=== PATIENT | female | born 1995 | race Caucasian/White ===

== ENCOUNTER → 2017-11-24 | Outpatient (CLI) | payer MEDICAID ==
--- NOTE | 2017-11-24 10:59 | Diagnostic Imaging Report ---
EXAM: biophysical profile. INDICATION: Gestational diabetes FINDINGS: There are no prior studies available for comparison. There is a single live fetus in cephalic presentation. heart motion was noted and a rate of 123 bpm was recorded. The biophysical profile score is 8 out of 8 and within normal limits. The placenta is anterior and there is no previa. The amniotic fluid volume index is 12.8 (normal 8 to 22 cm). IMPRESSION: 1. There is a single live fetus is cephalic presentation. 2. The biophysical profile score is within normal limits. Dictated by: Dictated on workstation # [id number]
== END ==
LOC: RAD 10:16
PROVIDERS: ATTEND Obstetrics & Gynecology
DX: O24.013 Pre-existing type 1 diabetes mellitus, in pregnancy, third trimester (principal)
CPT/HCPCS: 76819

== ENCOUNTER 2017-12-13 18:00 | Inpatient (IN) | payer MEDICAID ==
[2017-12-13] VITALS (11 sets, daily range): BP systolic 108–136; BP diastolic 53–87
[~2017-12-13] VITALS: Ht 157.5 cm; Wt 101.2 kg
--- OUTSIDE RECORDS SUMMARY | 2017-12-13 18:08 | XMS REPORT | Continuity of Care Document ---
Author Author [facility] Address Unknown Phone Unavailable Allergies There is no data. Medications There is no data. Problems Date Dx Coded Attending Type Code Diagnosis Diagnosed By 04/24/2009 ROSIO SAMANIEOG DO 250.01 DIABETES MELLITUS TYPE 1 04/24/2009 ROSIO SAMANIEGO DO 278.02 Overweight 04/24/2009 ROSIO SAMANIEGO DO V20.2 Preventive Medicine New Patient Evaluation Childhood 03-3104/24/2009 ORSIO SAMANIEGO DO 250.01 DIABETES MELLITUS TYPE 1 04/24/2009 ROSIO SAMANIEGO DO 278.02 Overweight 04/24/2009 ROSIO SAMANIEGO DO V20.2 Preventive Medicine New Patient Evaluation Childhood 03-3104/24/2009 250.01 DIABETES MELLITUS TYPE 1 04/24/2009 278.02 Overweight 04/24/2009 V20.2 Preventive Medicine New Patient Evaluation Childhood 03-3104/24/2009 250.01 DIABETES MELLITUS TYPE 1 04/24/2009 278.02 Overweight 04/24/2009 V20.2 Preventive Medicine New Patient Evaluation Childhood 03-3104/24/2009 ROSIO SAMANIEGO DO 250.01 DIABETES MELLITUS TYPE 1 04/24/2009 ROSIO SAMANIEGO DO 278.02 Overweight 04/24/2009 ROSIO SAMANIEGO DO V20.2 Preventive Medicine New Patient Evaluation Childhood 03-3104/24/2009 CATHERINE BABIN APRN R 250.01 DIABETES MELLITUS TYPE 1 04/24/2009 ALVAREZ BABIN APRNINA R 278.02 Overweight 04/24/2009 ALVAREZ BABIN APRNINA R V20.2 Preventive Medicine New Patient Evaluation Childhood 03-3104/24/2009 MIGUEL ANGEL HERNANDEZ APRN A 250.01 DIABETES MELLITUS TYPE 1 04/24/2009 MIGUEL ANGEL HERNANDEZ APRN A 278.02 Overweight 04/24/2009 MIGUEL ANGEL HERNANDEZ APRN A V20.2 Preventive Medicine New Patient Evaluation Childhood 03-3104/24/2009 AURELIO JONES APRN N 250.01 DIABETES MELLITUS TYPE 1 04/24/2009 JAXON JONES APRNCY N 278.02 Overweight 04/24/2009 AURELIO JONES APRN N V20.2 Preventive Medicine New Patient Evaluation Childhood 5-04/24/2009 AURELIO JONES APRN N 250.01 DIABETES MELLITUS TYPE 1 04/24/2009 JAXON JONES APRNCY N 278.02 Overweight 04/24/2009 JAXON JONES APRNCY N V20.2 Preventive Medicine New Patient Evaluation Childhood 5-04/24/2009 JAXON JONES APRNCY N 250.01 DIABETES MELLITUS TYPE 1 04/24/2009 JAXON JONES APRNCY N 278.02 Overweight 04/24/2009 JAXON JONES APRNCY N V20.2 Preventive Medicine New Patient Evaluation Childhood 5-04/24/2009 EATDACIA HUGGINSN, URBAN L 250.01 DIABETES MELLITUS TYPE 1 04/24/2009 EATDACIA HUGGINSN, URBAN L 278.02 Overweight 04/24/2009 EATON MACHINIST WOOD, URBAN L V20.2 Preventive Medicine New Patient Evaluation Childhood 5-04/24/2009 EATON MACHINIST WOOD, URBAN L 250.01 DIABETES MELLITUS TYPE 1 04/24/2009 EATON MACHINIST WOOD, URBAN L 278.02 Overweight 04/24/2009 EATON MACHINIST WOOD, URBAN L V20.2 Preventive Medicine New Patient Evaluation Childhood 5-11 06/29/2011 SAMANIEGO DOROSIO V04.89 Gardasil (hpv) Dx 06/29/2011 ROSIO SAMANIEGO DO V04.89 Gardasil (hpv) Dx 06/29/2011 V04.89 Gardasil (hpv ) Dx 06/29/2011 V04.89 Gardasil (hpv ) Dx 06/29/2011 ROSIO SAMANIEGO DO V04.89 Gardasil (hpv) Dx 06/29/2011 CATHERINE BABIN APRN V04.89 Gardasil (hpv) Dx 06/29/2011 MIGUEL ANGEL HERNANDEZ APRN V04.89 Gardasil (hpv) Dx 06/29/2011 KENYATTA SOARES APRAURELIO Larry N V04.89 Gardasil (hpv) Dx 06/29/2011 KENYATTA SOARES APRN, AURELIO N V04.89 Gardasil (hpv) Dx 06/29/2011 YOUTYRON SOARES APRN, AURELIO N V04.89 Gardasil (hpv) Dx 06/29/2011 EATON MACHINIST WOOD, URBAN L V04.89 Gardasil (hpv) Dx 06/29/2011 EATON MACHINIST WOOD, URBAN L V04.89 Gardasil (hpv) Dx 07/21/2011 ROSIO SAMANIEGO DO K 625.3 severe menstrual pain (dysmenorrhea) 07/21/2011 SAMANIEGO DO ROSIO K V25.01 Oral Contraceptives 07/21/2011 SAMANIEGO DO ROSIO K 625.3 severe menstrual pain (dysmenorrhea) 07/21/2011 SAMANIEGO DO ROSIO K V25.01 Oral Contraceptives 07/21/2011 625.3 severe menstrual pain (dysmenorrhea) 07/21/2011 V25.01 Oral Contraceptives 07/21/2011 625.3 severe menstrual pain (dysmenorrhea) 07/21/2011 V25.01 Oral Contraceptives 07/21/2011 SAMANIEGO ANDREW EDMONDSONA K 625.3 severe menstrual pain (dysmenorrhea) 07/21/2011 SAMANIEGO DO ROSIO K V25.01 Oral Contraceptives 07/21/2011 OLAF BHAKTA, CATHERINE R 625.3 severe menstrual pain (dysmenorrhea) 07/21/2011 OLAF BHAKTA CATHERINE R V25.01 Oral Contraceptives 07/21/2011 DAVID BHAKTA, MIGUEL ANGEL A 625.3 severe menstrual pain (dysmenorrhea) 07/21/2011 DAVID BHAKTA MIGUEL ANGEL A V25.01 Oral Contraceptives 07/21/2011 JAXON JONES APRNCY N 625.3 severe menstrual pain (dysmenorrhea) 07/21/2011 YOU CASHANT BHAKTA, AURELIO N V25.01 Oral Contraceptives 07/21/2011 JAXON JONES APRNCY N 625.3 severe menstrual pain (dysmenorrhea) 07/21/2011 KENYATTA SOARES MACHINIST WOOD, AURELIO N V25.01 Oral Contraceptives 07/21/2011 JAXON JONES APRNCY N 625.3 severe menstrual pain (dysmenorrhea) 07/21/2011 YOU CASHERO MACHINIST WOOD, AURELIO N V25.01 Oral Contraceptives 07/21/2011 COOPERON MACHINIST WOODJOSE ALFREDO LarrySON L 625.3 severe menstrual pain (dysmenorrhea) 07/21/2011 EATON MACHINIST WOOD URBAN L V25.01 Oral Contraceptives 07/21/2011 EATON MACHINIST WOOD, URBAN L 625.3 severe menstrual pain (dysmenorrhea) 07/21/2011 EATON MACHINIST WOOD, URBAN L V25.01 Oral Contraceptives 11/10/2011 SAMANIEGO DO, ROSIO K 372.30 Conjunctivitis Unspecified 11/10/2011 SAMANIEGO DO, ROSIO K 372.30 Conjunctivitis Unspecified 11/10/2011 372.30 Conjunctivitis Unspecified 11/10/2011 372.30 Conjunctivitis Unspecified 11/10/2011 SAMANIEGO DO, ROSIO K 372.30 Conjunctivitis Unspecified 11/10/2011 OLAF BHAKTA CATHERINE R 372.30 Conjunctivitis Unspecified 11/10/2011 RADHA HERNANDEZ APRNIDI A 372.30 Conjunctivitis Unspecified 11/10/2011 YOU CASHJAXON CAIN APRNCY N 372.30 Conjunctivitis Unspecified 11/10/2011 YOU CASHERO MACHINIST WOOD AURELIO N 372.30 Conjunctivitis Unspecified 11/10/2011 YOU CASHERO MACHINIST WOOD, AURELIO N 372.30 Conjunctivitis Unspecified 11/10/2011 RASHMI HUGGINSURBAN Larry L 372.30 Conjunctivitis Unspecified 11/10/2011 COOPERON JOSEA LFREDO BHAKTASON L 372.30 Conjunctivitis Unspecified 09/18/2012 SAMANIEGO DO, ROSIO K V25.9 CONTRACEPTION MANAGEMENT 09/18/2012 SAMANIEGO DO ROSIO K V25.9 CONTRACEPTION MANAGEMENT 09/18/2012 V25.9 CONTRACEPTION MANAGEMENT 09/18/2012 V25.9 CONTRACEPTION MANAGEMENT 09/18/2012 SAMANIEGO DO, ROSIO K V25.9 CONTRACEPTION MANAGEMENT 09/18/2012 OLAF BHAKTA, CATHERINE R V25.9 CONTRACEPTION MANAGEMENT 09/18/2012 DAVID BHAKTA MIGUEL ANGEL A V25.9 CONTRACEPTION MANAGEMENT 09/18/2012 YOU CASHERO MACHINIST WOOD, AURELIO N V25.9 CONTRACEPTION MANAGEMENT 09/18/2012 YOU CASHERO MACHINIST WOOD, AURELIO N V25.9 CONTRACEPTION MANAGEMENT 09/18/2012 YOU CASHERO LIVIA AURELIO N V25.9 CONTRACEPTION MANAGEMENT 09/18/2012 RASHMI BHAKTA URBAN L V25.9 CONTRACEPTION MANAGEMENT 09/18/2012 RASHMI MACHINIST WOOD, URBAN L V25.9 CONTRACEPTION MANAGEMENT 12/06/2012 SAMANIEGO DO, ROSIO K 272.4 HYPERLIPIDEMIA 12/06/2012 SAMANIEGO DO, ROSIO K V03.89 MENINGOCOCCAL DX 12/06/2012 SAMANIEGO DO, ROSIO K V04.89 GARDASIL (HPV) DX 12/06/2012 SAMANIEGO DO, ROSIO K 272.4 HYPERLIPIDEMIA 12/06/2012 SAMANIEGO DO, ROSIO K V03.89 MENINGOCOCCAL DX 12/06/2012 SAMANIEGO DO, ROSIO K V04.89 GARDASIL (HPV) DX 12/06/2012 272.4 HYPERLIPIDEMIA 12/06/2012 V03.89 MENINGOCOCCAL DX 12/06/2012 V04.89 GARDASIL (HPV ) DX 12/06/2012 DANETTE EDMONDSON, ROSIO K 272.4 HYPERLIPIDEMIA 12/06/2012 SAMANIEGO , ROSIO K V03.89 MENINGOCOCCAL DX 12/06/2012 DANETTE EDMONDSON, ROSIO K V04.89 GARDASIL (HPV) DX 12/06/2012 OLAF MACHINIST WOOD, CATHERINE R 272.4 HYPERLIPIDEMIA 12/06/2012 OLAF MACHINIST WOOD, CATHERINE R V03.89 MENINGOCOCCAL DX 12/06/2012 OLAF MACHINIST WOOD, CATHERINE R V04.89 GARDASIL (HPV) DX 12/06/2012 DAVID MACHINIST WOOD, MIGUEL ANGEL A 272.4 HYPERLIPIDEMIA 12/06/2012 DAVID MACHINIST WOOD, MIGUEL ANGEL A V03.89 MENINGOCOCCAL DX 12/06/2012 DAVID MACHINIST WOOD, MIGUEL ANGEL A V04.89 GARDASIL (HPV) DX 12/06/2012 YOU CASHERO MACHINIST WOOD, AURELIO N 272.4 HYPERLIPIDEMIA 12/06/2012 YOU CASHERO MACHINIST WOOD, AURELIO N V03.89 MENINGOCOCCAL DX 12/06/2012 YOU CASHERO MACHINIST WOOD, AURELIO N V04.89 GARDASIL (HPV) DX 12/06/2012 YOU CASHERO MACHINIST WOOD, AURELIO N 272.4 HYPERLIPIDEMIA 12/06/2012 YOU CASHERO MACHINIST WOOD, AURELIO N V03.89 MENINGOCOCCAL DX 12/06/2012 YOU CASHERO MACHINIST WOOD, AURELIO N V04.89 GARDASIL (HPV) DX 12/06/2012 YOU CASHERO MACHINIST WOOD, AURELIO N 272.4 HYPERLIPIDEMIA 12/06/2012 KENYATTA SOARES APRN, AURELIO N V03.89 MENINGOCOCCAL DX 12/06/2012 YOUTYRON MCKINLEYERO MACHINIST WOOD, AURELIO N V04.89 GARDASIL (HPV) DX 12/06/2012 EATON MACHINIST WOOD, URBAN L 272.4 HYPERLIPIDEMIA 12/06/2012 EATON MACHINIST WOOD, URBAN L V03.89 MENINGOCOCCAL DX 12/06/2012 EATON MACHINIST WOOD, URBAN L V04.89 GARDASIL (HPV) DX 12/06/2012 EATON MACHINIST WOOD, URBAN L 272.4 HYPERLIPIDEMIA 12/06/2012 EATON MACHINIST WOOD, URBAN L V03.89 MENINGOCOCCAL DX 12/06/2012 EATON MACHINIST WOOD, URBAN L V04.89 GARDASIL (HPV) DX 01/16/2013 V72.85 OTHER SPECIFIED EXAMINATION 01/16/2013 ROSIO SAMANIEGO DO V72.85 OTHER SPECIFIED EXAMINATION 01/16/2013 OLAF BHAKTA CATHERINE R V72.85 OTHER SPECIFIED EXAMINATION 01/16/2013 DAVID BHAKTA MIGUEL ANGEL A V72.85 OTHER SPECIFIED EXAMINATION 01/16/2013 KENYATTA SOARES MACHINIST WOOD, AURELIO N V72.85 OTHER SPECIFIED EXAMINATION 01/16/2013 KENYATTA SOARES APRN, AURELIO N V72.85 OTHER SPECIFIED EXAMINATION 01/16/2013 KENYATTA MCKINLEYERO MACHINIST WOOD, AURELIO N V72.85 OTHER SPECIFIED EXAMINATION 01/16/2013 EATON MACHINIST WOOD, URBAN L V72.85 OTHER SPECIFIED EXAMINATION 01/16/2013 EATON MACHINIST WOOD, URBAN L V72.85 OTHER SPECIFIED EXAMINATION 10/09/2013 ROSIO SAMANIEGO DO V74.1 TB SCREENING 10/09/2013 OLAF BHAKTA CATHERINE R V74.1 TB SCREENING 10/09/2013 DAVID BHAKTA, MIGUEL ANGEL A V74.1 TB SCREENING 10/09/2013 YOU ELÍASERO MACHINIST WOOD, AURELIO N V74.1 TB SCREENING 10/09/2013 YOU CASHERO MACHINIST WOOD, AURELIO N V74.1 TB SCREENING 10/09/2013 YOU CASHERO MACHINIST WOOD, AURELIO N V74.1 TB SCREENING 10/09/2013 EATON MACHINIST WOOD, URBAN L V74.1 TB SCREENING 10/09/2013 EATON MACHINIST WOOD, URBAN L V74.1 TB SCREENING 01/16/2014 OLAF MACHINIST WOOD, CATHERINE R 493.81 EXERCISE-INDUCED BRONCHOSPASM 01/16/2014 OLAF MACHINIST WOOD, CATHERINE R V70.3 OTHER GENERAL MEDICAL EXAMINATION FOR ADMINISTRATIVE PURPOSES 01/16/2014 DAVID MACHINIST WOOD, MIGUEL ANGEL A 493.81 EXERCISE-INDUCED BRONCHOSPASM 01/16/2014 DAVID MACHINIST WOOD, MIGUEL ANGEL A V70.3 OTHER GENERAL MEDICAL EXAMINATION FOR ADMINISTRATIVE PURPOSES 01/16/2014 KENYATTA SOARES MACHINIST WOOD, AURELIO N 493.81 EXERCISE-INDUCED BRONCHOSPASM 01/16/2014 KENYATTA MCKINLEYERO MACHINIST WOOD, AURELIO N V70.3 OTHER GENERAL MEDICAL EXAMINATION FOR ADMINISTRATIVE PURPOSES 01/16/2014 YOU ELÍASERO MACHINIST WOOD, AURELIO N 493.81 EXERCISE-INDUCED BRONCHOSPASM 01/16/2014 YOU ELÍASERO MACHINIST WOOD, AURELIO N V70.3 OTHER GENERAL MEDICAL EXAMINATION FOR ADMINISTRATIVE PURPOSES 01/16/2014 KENYATTA SOARES LIVIA, AURELIO N 493.81 EXERCISE-INDUCED BRONCHOSPASM 01/16/2014 KENYATTA SOARES JAXON BHAKTACY N V70.3 OTHER GENERAL MEDICAL EXAMINATION FOR ADMINISTRATIVE PURPOSES 01/16/2014 EATON LIVIA, URBAN L 493.81 EXERCISE-INDUCED BRONCHOSPASM 01/16/2014 EATON MACHINIST WOOD, URBAN L V70.3 OTHER GENERAL MEDICAL EXAMINATION FOR ADMINISTRATIVE PURPOSES 01/16/2014 EATON MACHINIST WOOD, URBAN L 493.81 EXERCISE-INDUCED BRONCHOSPASM 01/16/2014 EATON MACHINIST WOOD, URBAN L V70.3 OTHER GENERAL MEDICAL EXAMINATION FOR ADMINISTRATIVE PURPOSES 07/08/2014 KENYATTA MCKINLEYJAXON CAIN APRNCY N 070.30 VIRAL HEPATITIS B WITHOUT HEPATIC COMA ACUTE OR UNSPECIFIED WITHOUT HEPATITIS DELTA 07/08/2014 YOU ELÍASERO MACHINIST WOOD AURELIO N 070.30 VIRAL HEPATITIS B WITHOUT HEPATIC COMA ACUTE OR UNSPECIFIED WITHOUT HEPATITIS DELTA 07/08/2014 YOU CASHERO MACHINIST WOOD AURELIO N 070.30 VIRAL HEPATITIS B WITHOUT HEPATIC COMA ACUTE OR UNSPECIFIED WITHOUT HEPATITIS DELTA 07/08/2014 EATON MACHINIST WOOD, URBAN L 070.30 VIRAL HEPATITIS B WITHOUT HEPATIC COMA ACUTE OR UNSPECIFIED WITHOUT HEPATITIS DELTA 07/08/2014 EATON MACHINIST WOOD, URBAN L 070.30 VIRAL HEPATITIS B WITHOUT HEPATIC COMA ACUTE OR UNSPECIFIED WITHOUT HEPATITIS DELTA 10/16/2014 EATON MACHINIST WOOD, URBAN L 461.9 SINUSITIS ACUTE 10/16/2014 JOSE ALFREDO CARABALLO APRNROLANDO Mackay 461.9 SINUSITIS ACUTE Procedures Code Description [place] [address] ROUTINE VENIPUNCTURE 12/06/2012 J1055 DEPO-PROVERA INJ 150 MG 12/06/2012 93090 URINE TEST (IN- HOUSE) 12/06/2012 57906 MICRO ALBUMIN-IN HOUSE 12/06/2012 38869 CBC 12/06/2012 22388 CMP 12/06/2012 28797 LIPID PANEL 12/06/2012 09793 A1C (RML) 12/07/2012 36553 TSH 12/08/2012 44898 TB TEST INTRADERMAL 10/09/2013 80401 THERAPUTIC INJ SQ/IM 03/28/2014 J1050 DEPO PROVERA 03/28/2014 67444 TEST, URINE (IN- HOUSE) 03/28/2014 14187 TEST, URINE (IN- HOUSE) 07/19/2014 79165 THERAPUTIC INJ SQ/IM 07/19/2014 J1050 DEPO PROVERA 07/19/2014 87054 STREP A (IN-HOUSE) 10/16/2014 66745 TEST, URINE (IN- HOUSE) 10/16/2014 27640 THERAPUTIC INJ SQ/IM 10/16/2014 J1050 DEPO PROVERA 10/21/2014 Results There is no data. Encounters ACCT No. Visit Date/Time Discharge Status Pt. Type Provider Facility Loc./Unit Complaint [id number] 10/16/2014 14:29:00 10/16/2014 23:59:59 CLS Outpatient URBAN CARABALLO APRN [id number] 10/16/2014 14:29:00 10/16/2014 23:59:59 CLS Outpatient URBAN CARABALLO APRN [id number] 07/19/2014 15:52:00 07/19/2014 23:59:59 CLS Outpatient AURELIO JONES APRN [id number] 07/19/2014 15:52:00 07/19/2014 23:59:59 CLS Outpatient AURELIO JONES APRN [id number] 07/08/2014 15:10:00 07/08/2014 23:59:59 CLS Outpatient AURELIO JONES APRN [id number] 03/28/2014 09:40:00 03/28/2014 23:59:59 CLS Outpatient MIGUEL ANGEL HERNANDEZ APRN [id number] 01/16/2014 15:24:00 01/16/2014 23:59:59 CLS Outpatient CATHERINE BABIN APRN [place] [id number] 10/09/2013 16:10:00 10/09/2013 23:59:59 CLS Outpatient ROSIO SAMANIEGO DO [id number] 01/16/2013 10:23:00 01/16/2013 23:59:59 CLS Outpatient [id number] 12/06/2012 09:41:00 12/06/2012 23:59:59 CLS Outpatient ROSIO SAMANIEGO DO [id number] 12/06/2012 09:41:00 12/06/2012 23:59:59 [place] [id number] 09/18/2012 14:10:00 09/18/2012 23:59:59 CLS Outpatient
[2017-12-13] MEDS ORDERED: LIDOCAINE/EPI 0.5%-1:200,000 (XYLOCAINE) 50ML VIAL INJ PRN (18:30)
[2017-12-13] MEDS ORDERED: MINERAL OIL CONCENTRATE 99.9% 15 ML UDC TOP PRN (18:30)
[2017-12-13] MEDS ORDERED: MISOPROSTOL 100 MCG (CYTOTEC) TAB PO NR (18:30)
[2017-12-13] MEDS ORDERED: TERBUTALINE INJ 1 MG/ML (BRETHINE) AMP SC PRN (18:30)
[2017-12-13 18:42] LABS: BASOPHILS % (AUTO) 0 % (0-10); EOSINOPHILS % (AUTO) 0 % (0-10); HEMATOCRIT 34 % (35-52); HEMOGLOBIN 11.4 G/DL (11.5-16.0); LYMPHOCYTES # (AUTO) 2.6 X 10^3 (1.0-4.0); LYMPHOCYTES % (AUTO) 19 % (12-44); MEAN CORPUSCULAR HEMOGLOBIN 29 PG (25-34); MEAN CORPUSCULAR HGB CONC 34 G/DL (32-36); MEAN CORPUSCULAR VOLUME 85 FL (80-99); MONOCYTES % (AUTO) 8 % (0-12); NEUTROPHILS # (AUTO) 9.6 X 10^3 (1.8-7.8); NEUTROPHILS % (AUTO) 72 % (42-75); PLATELET COUNT 354 10^3/uL (130-400); RED BLOOD COUNT 3.94 10^6/uL (4.35-5.85); RED CELL DISTRIBUTION WIDTH 14.6 % (10.0-14.5); WHITE BLOOD COUNT 13.2 10^3/uL (4.3-11.0)
[2017-12-13] MEDS ORDERED: LACTATED RINGERS 1,000 ML IV ONE (19:00)
[2017-12-13 19:01] LABS: BILIRUBIN,URINE NEGATIVE (NEGATIVE); CLARITY,URINE SLIGHTLY CLOUDY; COLOR,URINE YELLOW; GLUCOSE, URINE (UA) NEGATIVE (NEGATIVE); KETONES,URINE NEGATIVE (NEGATIVE); NITRITE,URINE NEGATIVE (NEGATIVE); PH,URINE 7 (5-9); UROBILINOGEN,URINE NORMAL (NORMAL)
[2017-12-13 19:07] LABS: LEUKOCYTE ESTERASE ,URINE 2+ (NEGATIVE); PROTEIN,URINE NEGATIVE (NEGATIVE)
[2017-12-13 19:11] LABS: BACTERIA,URINE LARGE /HPF; SQUAMOUS EPITHELIAL CELL,UR 25-50 /HPF; WBC,URINE 50-100 /HPF
[2017-12-13] MEDS: LACTATED RINGERS 1,000 ML IV SCH ×2 (19:30→21:40)
--- NOTE | 2017-12-13 20:59 | Progress Note-Standard ---
Standard Progress Note Progress Notes/Assess & Plan Date Seen by Provider: Dec 13, 2017 Time Seen by Provider: 19:00 Progress/Assessment & Plan Patient was admitted for indction of labor. She is39 weeks with type I diabetes. has been uncomplicated otherwise. She had lung maturity last week and lungs not mature (35 lamellar bodies). However, amnio done Tuesday showed maturity and [facility] recommended delivery. BPPs and NSTs have been reassuring After admission there was a spontaneous deceleration to 80 for 6 minutes but variability remained reassuring. She appeared to have had an extended contraction. This resolved and she is having uterine irritability. SVE .5, 70, -1. Will continue planned induction. Decrease basal insulin to 1/2 of normal dose.Keep blood sugars around 100. Check blood sugars Ac,2 hour pp, and hs. NICHOLE MILLS DO Dec 13, 2017 20:59
[2017-12-13] MEDS ORDERED: CATHETER FLUSH 10 ML SYR IV SCH (22:00)
[2017-12-13] MEDS ORDERED: MISOPROSTOL 100 MCG (CYTOTEC) TAB PO SCH (22:30)
[2017-12-14] VITALS: BP 119/80
[2017-12-14] MEDS ORDERED: morphine INJ 4 MG/ML 1 ML (VIAL/SYRINGE) IVP PRN
[2017-12-14] MEDS ORDERED: CITRIC ACID/SOB CIT (BICITRA) 30 ML UDC ONE (00:46)
[2017-12-14] MEDS ORDERED: METOCLOPRAMIDE INJ 10 MG/2 ML (REGLAN) ONE (00:46)
[2017-12-14] MEDS ORDERED: FAMOTIDINE 20MG/2ML IV (PEPCID) ONE (00:47)
[2017-12-14] MEDS ORDERED: fentaNYL INJECTION 100 MCG/2 ML AMP ONE (00:54)
[2017-12-14] MEDS ORDERED: ceFAZolin 2 GM/50 ML NS 50 ML ONE (00:55)
[2017-12-14 01:00] VITALS: BP 122/63
[2017-12-14] MEDS ORDERED: AZITHROMYCIN 500 MG (ZITHROMAX) VIAL ONE (01:00)
[2017-12-14] MEDS ORDERED: NS (IVPB) 250 ML ONE (01:01)
[2017-12-14] MEDS ORDERED: OXYTOCIN/NORMAL SALINE 500 ML IV ONE (01:05)
[2017-12-14] MEDS: LACTATED RINGERS 1,000 ML IV SCH ×4 (01:29→21:14)
[2017-12-14] MEDS ORDERED: ONDANSETRON 4 MG/2 ML (SDV) Z0FRAN ONE (01:48)
[2017-12-14] MEDS ORDERED: OXYTOCIN/NORMAL SALINE 1,000 ML IV ONE (01:48)
--- NOTE | 2017-12-14 02:21 | Cesarean Section Operative ---
Procedure Procedure Note Pre-operative Diagnosis: Gilda Haro is a 22 /Para 1/0 , Gestational Age 39 2/7, type 1 diabetes, bradycardia Post-operative Diagnosis: same , OP presentation, nuchal and body cord Procedure: primary low transverse section Physician: NICHOLE MILLS Ski Patroller: GRAYSON Rasmussen Estimated blood loss: 400 mL Disposition: stable FSBS prior to surgery 74. pump removed for surgery. Findings: Viable male , Apgars 8/9, weight 4070 grams, intact placenta, 3vc, normal appearing uterus, tubes, and ovaries. Indications:Gilda Haro is a 22 /Para 1/0 ,Gestational Age 39 2/7 , type 1 diabetes, bradycardia Admitted for induction of labor due to type I diabetes at 39 1/7 weeks. Lungs mature based on amnio with lamellar bodies 77 on 12/12/17. Unfavorable cervix. Brought in for cervical ripening on 12/13/17. Had spontaneous deceleration to 70s for 7 minutes. Team called for stat section. The heart rate returned to normal with variability, so we were able to move the patient to the OR and place a spinal in the lateral decub position. Procedure Details: The patient was seen in pre-op and the procedure was discussed with the patient in full, including the risks, benefits, and alternatives. All questions were answered. The patient was taken to the operating room and a time out was performed, verifying patient and procedure. After spinal anesthesia was placed by our anesthesia colleagues, the patient was placed in the dorsal supine with leftward tilt for uterine displacement.~ Her abdomen was then prepped and draped in the typical sterile fashion. A Pfannenstiel skin incision was made using a scalpel and carried down through the underlying fascia. The fascia was incised in the midline and tented up using Rufino clamps. On both the inferior and superior fascia side the rectus muscle was dissected off bluntly and sharply using Hauser scissors. The peritoneum was identified and entered bluntly in the midline. This was then stretched laterally using manual strength. After entering the abdominal cavity and confirming lack of intraperitoneal adhesions, a large Andrew retractor was placed and the lower uterine segment was visualized. A scalpel was utilized to make a low transverse uterine incision. The infant's head was grasped and brought to the level of the incision. It was delivered with the assistance of the silastic suction. It was OP presentation and there was a loose nuchal cord and body cord that was reduced. the infant was delivered without difficulty. Mouth and nares were suctioned with bulb suction. After the umbilical cord was clamped and cut, the was handed off to the pediatric staff. A sample of cord blood was then obtained. Cord gas was sent. pH 7.24. The placenta was delivered intact via uterine massage. The uterus was cleared of all clots and debris. The uterine incision was closed using 0 Vicryl in a running locked fashion. A second imbricated layer was placed using 0 Vicryl in a running fashion as well. The bilateral tubes and ovaries appeared normal. The abdominal gutters were cleared of all clots and debris. A final check of the uterine incision showed it to be hemostatic. The peritoneum was closed using 3-0 Vicryl in a running fashion. The fascia was closed with 0 Vicryl in a running fashion. The subcutaneous space was hemostatic, and irrigated. The subcutaneous space was closed with 3-0 Vicryl in several single interrupted stitches. The skin was then closed using 4-0 Monocryl in a running subcuticular fashion. The skin edges were reapproximated together and were hemostatic. A pressure dressing was applied. All sponge, lap and needle counts were correct at the end of the procedure per nursing. Post operative blood sugar pending Vitals - Labs Vital Signs - I&O Vital Signs Date Time Temp Pulse Resp B/P (MAP) Pulse Ox O2 Delivery O2 Flow Rate FiO2 12/13/17 21:30 60 20 135/64 (87) 100 Room Air 15.00 12/13/17 21:00 58 20 127/62 (83) 100 Room Air 15.00 12/13/17 20:30 84 20 126/83 (97) Room Air 12/13/17 20:00 77 20 136/87 (103) Room Air 12/13/17 19:30 98.4 72 20 126/82 (97) Room Air 12/13/17 19:00 65 20 116/66 (83) Non Rebreather 10.00 12/13/17 18:30 98.0 90 20 136/82 (100) I & O 12/14/17 07:00 Output Total 950 ml Balance -950 ml Labs Laboratory Tests 12/13/17 18:25: White Blood Count 13.2H, Red Blood Count 3.94L, Hemoglobin 11.4L, Hematocrit 34L , Mean Corpuscular Volume 85, Mean Corpuscular Hemoglobin 29, Mean Corpuscular Hemoglobin Concent 34, Red Cell Distribution Width 14.6H, Platelet Count 354, Mean Platelet Volume 11.0H, Neutrophils (%) (Auto) 72, Lymphocytes (%) (Auto) 19 , Monocytes (%) (Auto) 8, Eosinophils (%) (Auto) 0, Basophils (%) (Auto) 0, Neutrophils # (Auto) 9.6H, Lymphocytes # (Auto) 2.6, Monocytes # (Auto) 1.0, Eosinophils # (Auto) 0.0, Basophils # (Auto) 0.0, Urine Color YELLOW, Urine Clarity SLIGHTLY CLOUDY, Urine pH 7, Urine Specific [place] 1.005L, Urine Protein NEGATIVE, Urine Glucose (UA) NEGATIVE, Urine Ketones NEGATIVE, Urine Nitrite NEGATIVE, Urine Bilirubin NEGATIVE, Urine Urobilinogen NORMAL, Urine Leukocyte Esterase 2+H, Urine RBC (Auto) NEGATIVE, Urine RBC NONE, Urine WBC 50- 100H, Urine Squamous Epithelial Cells 25-50H, Urine Crystals NONE, Urine Bacteria LARGEH, Urine Casts NONE, Urine Mucus NEGATIVE, Urine Culture Indicated NO NICHOLE MILLS DO Dec 14, 2017 02:21
[2017-12-14] MEDS ORDERED: OXYTOCIN/NORMAL SALINE 500 ML IV SCH (02:22)
[2017-12-14] MEDS ORDERED: D5 1/2 NS 1000 ML IV SOLUTION 1,000 ML IV ONE (02:24)
[2017-12-14] MEDS ORDERED: IBUPROFEN 600 MG (MOTRIN) TAB PO SCH (02:30)
[2017-12-14] MEDS ORDERED: MEASLES,MUMPS,RUBELLA 1 EA INJ SC SCH (02:30)
[2017-12-14] MEDS ORDERED: D5 1/2 NS 1000 ML IV SOLUTION 1,000 ML IV SCH (02:30)
[2017-12-14] MEDS ORDERED: TETANUS,DIPTH,PERTUSS P/F (BOOSTRIX) 0.5 ML VIAL IM SCH (02:30)
[2017-12-14] MEDS ORDERED: HYDROmorphone (DILAUDID) 2 MG/ML VIAL IVP PRN (02:30)
[2017-12-14] MEDS ORDERED: ONDANSETRON 4 MG/2 ML (SDV) Z0FRAN IVP PRN (02:30)
[2017-12-14] MEDS: KETOROLAC 30 MG/ML VIAL IVP SCH ×3 (03:50→19:08)
[2017-12-14] MEDS ORDERED: LACTATED RINGERS 1,000 ML IV ONE (04:15)
[2017-12-14] MEDS: HYDROcodone/APAP 5 MG/325 MG (LORTAB) TAB PO PRN ×3 (05:00→17:00)
[2017-12-14 05:50] VITALS: BP 115/72
[2017-12-14 08:44] VITALS: BP 110/69
[2017-12-14] MEDS: DOCUSATE SODIUM 100 MG (COLACE) CAP PO SCH (09:19)
[2017-12-14 11:30] VITALS: BP 145/89
--- NOTE | 2017-12-14 14:00 | Anesthesia-Regional Post-Op ---
Regional Patient Condition Mental Status: Alert, Oriented x3 Circulation: Same as Pre-Op Headache: Absent Sensation: Full Recovery Motor Block: Absent Post Op Complications Complications None Follow Up Care/Instructions Patient Instructions None needed. Anesthesia/Patient Condition Patient is doing well, no complaints, stable vital signs, no apparent adverse anesthesia problems. JOHANNE ORTIZ DO Dec 14, 2017 14:00
[2017-12-14] MEDS: CATHETER FLUSH 10 ML SYR IV SCH (14:33)
[2017-12-14] MEDS: D5 1/2 NS 1000 ML IV SOLUTION 1,000 ML IV SCH (14:34)
[2017-12-14 16:50] VITALS: BP 134/81
[2017-12-14] MEDS ORDERED: KETOROLAC 30 MG/ML VIAL ONE (23:58)
[2017-12-15] VITALS: BP 142/80
[2017-12-15] MEDS: KETOROLAC 30 MG/ML VIAL IVP SCH (00:08)
[2017-12-15] MEDS: D5 1/2 NS 1000 ML IV SOLUTION 1,000 ML IV SCH ×2 (05:02→14:09)
[2017-12-15] MEDS: LACTATED RINGERS 1,000 ML IV SCH ×2 (05:17→14:09)
[2017-12-15 06:09] LABS: BASOPHILS % (AUTO) 0 % (0-10); EOSINOPHILS # (AUTO) 0.1 10^3/uL (0.0-0.3); EOSINOPHILS % (AUTO) 0 % (0-10); HEMATOCRIT 31 % (35-52); HEMOGLOBIN 10.5 G/DL (11.5-16.0); LYMPHOCYTES # (AUTO) 2.4 X 10^3 (1.0-4.0); LYMPHOCYTES % (AUTO) 15 % (12-44); MEAN CORPUSCULAR HEMOGLOBIN 29 PG (25-34); MEAN CORPUSCULAR HGB CONC 34 G/DL (32-36); MEAN CORPUSCULAR VOLUME 86 FL (80-99); MEAN PLATELET VOLUME 10.5 FL (7.4-10.4); MONOCYTES # (AUTO) 1.1 X 10^3 (0.0-1.0); MONOCYTES % (AUTO) 7 % (0-12); NEUTROPHILS # (AUTO) 12.7 X 10^3 (1.8-7.8); NEUTROPHILS % (AUTO) 78 % (42-75); PLATELET COUNT 384 10^3/uL (130-400); RED BLOOD COUNT 3.62 10^6/uL (4.35-5.85); RED CELL DISTRIBUTION WIDTH 14.9 % (10.0-14.5); WHITE BLOOD COUNT 16.2 10^3/uL (4.3-11.0)
[2017-12-15 06:10] VITALS: BP 124/81
[2017-12-15] MEDS: IBUPROFEN 600 MG (MOTRIN) TAB PO SCH ×3 (06:10→17:22)
[2017-12-15 08:00] VITALS: BP 123/80
[2017-12-15] MEDS: DOCUSATE SODIUM 100 MG (COLACE) CAP PO SCH ×2 (09:02→14:14)
--- NOTE | 2017-12-15 09:04 | Postpartum Progress Note ---
Post Op Post-operative Day #1 s/p PLTCS, bradycardia. Type I diabetes Subjective: Patient with multiple episodes of hypoglycemia yesterday despite decreasing her basal rate. I asked her to discontinue basal but she was hesitant and did not do this and blood sugar this am was 49. Resolves with food and/or D5. Ambulating, voiding after caldwell removed. Tolerating a regular diet without nausea or vomiting. Normal lochia. Pain is well controlled with oral pain medications. Passing flatus. breast feeding. Objective: Laboratory Tests Test 12/15/17 05:38 Range/Units White Blood Count 16.2 H 4.3-11.0 10^3/uL Red Blood Count 3.62 L 4.35-5.85 10^6/uL Hemoglobin 10.5 L 11.5-16.0 G/DL Hematocrit 31 L 35-52 % Mean Corpuscular Volume 86 80-99 FL Mean Corpuscular Hemoglobin 29 25-34 PG Mean Corpuscular Hemoglobin Concent 34 32-36 G/DL Red Cell Distribution Width 14.9 H 10.0-14.5 % Platelet Count 384 130-400 10^3/uL Mean Platelet Volume 10.5 H 7.4-10.4 FL Neutrophils (%) (Auto) 78 H 42-75 % Lymphocytes (%) (Auto) 15 12-44 % Monocytes (%) (Auto) 7 0-12 % Eosinophils (%) (Auto) 0 0-10 % Basophils (%) (Auto) 0 0-10 % Neutrophils # (Auto) 12.7 H 1.8-7.8 X 10^3 Lymphocytes # (Auto) 2.4 1.0-4.0 X 10^3 Monocytes # (Auto) 1.1 H 0.0-1.0 X 10^3 Eosinophils # (Auto) 0.1 0.0-0.3 10^3/uL Basophils # (Auto) 0.0 0.0-0.1 10^3/uL Vital Sign - Last 12Hours 12/15/17 12/15/17 12/15/17 00:00 06:10 08:00 Temp 99.1 98.2 97.9 Pulse 89 79 89 Resp 16 16 16 B/P (MAP) 142/80 (100) 124/81 (95) 123/80 (94) Pulse Ox 98 98 98 O2 Delivery Room Air Room Air Room Air Intake and Output 12/15/17 00:00 Intake Total 1600 ml Output Total 350 ml Balance 1250 ml Physical Exam: General - Alert and oriented, no apparent distress Abdomen - Soft, appropriately tender to palpation, non-distended, fundus firm at umbilicus Incision - clean, dry and intact; no erythema or induration, no drainage Extremities - no edema, negative Russel's bilaterally Assessment: 1. post-operative day # 1, status post PLTCS. Recovering well, hemodynamically stable 2. Acute blood loss anemia 3. Type I diabetes, with hypoglycemic episodes. Requires 1/2 insulin antepartum requirement or less than than during this 24-48 hour period. Can resume prepregnancy dosing after that. Plan: Routine post-operative care. Encourage breast feeding. Encourage ambulation. VTE prophylaxis: SCDs. Ferrous sulfate supplementation. Plan for discharge tomorrow or Tuesday. Vitals - Labs Vital Signs - I&O Vital Signs Date Time Temp Pulse Resp B/P (MAP) Pulse Ox O2 Delivery O2 Flow Rate FiO2 12/15/17 08:00 97.9 89 16 123/80 (94) 98 Room Air 12/15/17 06:10 98.2 79 16 124/81 (95) 98 Room Air 12/15/17 00:00 99.1 89 16 142/80 (100) 98 Room Air 12/14/17 16:50 97.9 80 16 134/81 (98) 97 Room Air 12/14/17 11:30 97.6 79 16 145/89 (107) 97 Room Air I & O 12/15/17 07:00 Intake Total 4050 ml Output Total 350 ml Balance 3700 ml Labs Laboratory Tests 12/15/17 05:38: White Blood Count 16.2H, Red Blood Count 3.62L, Hemoglobin 10.5L, Hematocrit 31L , Mean Corpuscular Volume 86, Mean Corpuscular Hemoglobin 29, Mean Corpuscular Hemoglobin Concent 34, Red Cell Distribution Width 14.9H, Platelet Count 384, Mean Platelet Volume 10.5H, Neutrophils (%) (Auto) 78H, Lymphocytes (%) (Auto) 15, Monocytes (%) (Auto) 7, Eosinophils (%) (Auto) 0, Basophils (%) (Auto) 0, Neutrophils # (Auto) 12.7H, Lymphocytes # (Auto) 2.4, Monocytes # (Auto) 1.1H, Eosinophils # (Auto) 0.1, Basophils # (Auto) 0.0 Microbiology 12/13/17 Urine Culture - Preliminary, Resulted NICHOLE MILLS DO Dec 15, 2017 09:04
[2017-12-15] MEDS: FERROUS SULF 325 MG (IRON) TAB PO SCH (11:49)
[2017-12-15 12:00] VITALS: BP 133/76
[2017-12-15] MEDS: CATHETER FLUSH 10 ML SYR IV SCH (14:14)
[2017-12-15] MEDS: HYDROcodone/APAP 5 MG/325 MG (LORTAB) TAB PO PRN (17:22)
[2017-12-15 19:40] VITALS: BP 151/91
[2017-12-16] MEDS: DOCUSATE SODIUM 100 MG (COLACE) CAP PO SCH ×3 (00:03→20:42)
[2017-12-16] MEDS: IBUPROFEN 600 MG (MOTRIN) TAB PO SCH ×4 (00:03→18:50)
[2017-12-16 06:30] VITALS: BP 146/86
[2017-12-16 09:50] VITALS: BP 140/80
[2017-12-16] MEDS: CATHETER FLUSH 10 ML SYR IV SCH ×2 (10:55→18:51)
[2017-12-16] MEDS: FERROUS SULF 325 MG (IRON) TAB PO SCH ×3 (13:21→18:52)
[2017-12-16 16:18] VITALS: BP 159/98
[2017-12-16] MEDS: HYDROcodone/APAP 5 MG/325 MG (LORTAB) TAB PO PRN (17:55)
[2017-12-16 20:35] VITALS: BP 123/75
[2017-12-17] MEDS: IBUPROFEN 600 MG (MOTRIN) TAB PO SCH ×3 (01:23→13:12)
[2017-12-17 06:53] VITALS: BP 156/91
[2017-12-17] MEDS: FERROUS SULF 325 MG (IRON) TAB PO SCH (09:44)
[2017-12-17 09:45] VITALS: BP 158/97
[2017-12-17] MEDS: DOCUSATE SODIUM 100 MG (COLACE) CAP PO SCH (09:45)
[2017-12-17] MEDS ORDERED: FUROSEMIDE 20 MG (LASIX) TAB PO SCH (10:45)
[2017-12-17 13:09] VITALS: BP 151/96
--- NOTE | 2017-12-17 13:12 | Postpartum Progress Note ---
Post Op Late entry Patient seen and examined on 12/16/17 at 1145. And at 1300. Blood sugars have been low. Changed her basal dosing yesterday but was not confident decreasing as much as I would like. Is not dosing with meals. Continues to have low blood sugars especially at night. Agreed to discontinue the basal overnight. Post-operative Day #2 s/p PLTCS Subjective: Patient is without complaints. Ambulating, voiding after caldwell removed. Tolerating a regular diet without nausea or vomiting. Normal lochia. Pain is well controlled with oral pain medications. Passing flatus. breast feeding. Objective: BP 124/81 P 66 T 97.3 Hgb 10.5 Physical Exam: General - Alert and oriented, no apparent distress Abdomen - Soft, appropriately tender to palpation, non-distended, fundus firm at umbilicus Incision - clean, dry and intact; no erythema or induration, no drainage Extremities - no edema, negative Russel's bilaterally Assessment: 1. post-operative day # 2, status post PLTCS. Recovering well, hemodynamically stable 2. Acute blood loss anemia 3. Type I diabetes with hypoglycemia Plan: Routine post-operative care. Encourage breast feeding. Encourage ambulation. VTE prophylaxis: SCDs. Ferrous sulfate supplementation. Tomorrow discharge if BS are better Vitals - Labs Vital Signs - I&O Vital Signs Date Time Temp Pulse Resp B/P (MAP) Pulse Ox O2 Delivery O2 Flow Rate FiO2 12/17/17 09:45 158/97 (117) 12/17/17 06:53 97.6 59 16 156/91 (112) 98 12/17/17 01:25 97.0 88 18 98 12/16/17 20:35 98.0 83 18 123/75 (91) 98 12/16/17 16:18 98.2 68 16 159/98 (118) 97 Room Air Labs Microbiology 12/13/17 Urine Culture - Final, Complete NICHOLE MILLS DO Dec 17, 2017 13:12
--- NOTE | 2017-12-17 13:17 | Postpartum Progress Note ---
Post Op Post-operative Day #3 s/p LTCS Stopped overnight basal. BS this am 300. Understands that she will be able to gradually increase her baseline to prepregnancy levels but high currently is better than low Labile BP and elevated today. No headaches, no blurred vision, no DOA Subjective: Patient is without complaints. Ambulating, voiding after caldwell removed. Tolerating a regular diet without nausea or vomiting. Normal lochia. Pain is well controlled with oral pain medications. Passing flatus. breast feeding. [] Objective: Vital Sign - Last 12Hours 12/17/17 12/17/17 12/17/17 01:25 06:53 09:45 Temp 97.0 97.6 Pulse 88 59 Resp 18 16 B/P (MAP) 156/91 (112) 158/97 (117) Pulse Ox 98 98 Physical Exam: General - Alert and oriented, no apparent distress Abdomen - Soft, appropriately tender to palpation, non-distended, fundus firm at umbilicus Incision - clean, dry and intact; no erythema or induration, no drainage Extremities - no edema, negative Russel's bilaterally Assessment: 1. post-operative day # 3, status post PLTCS. Recovering well, hemodynamically stable 2. Acute blood loss anemia 3. Type I diabetes, labile blood sugars 4. Elevated blood pressures, asymptomatic Plan: Routine post-operative care. Encourage breast feeding. Encourage ambulation. VTE prophylaxis: SCDs. Ferrous sulfate supplementation. Plan for discharge today with close follow up [ Vitals - Labs Vital Signs - I&O Vital Signs Date Time Temp Pulse Resp B/P (MAP) Pulse Ox O2 Delivery O2 Flow Rate FiO2 12/17/17 09:45 158/97 (117) 12/17/17 06:53 97.6 59 16 156/91 (112) 98 12/17/17 01:25 97.0 88 18 98 12/16/17 20:35 98.0 83 18 123/75 (91) 98 12/16/17 16:18 98.2 68 16 159/98 (118) 97 Room Air Labs Microbiology 12/13/17 Urine Culture - Final, Complete NICHOLE MILLS DO Dec 17, 2017 13:17
[2017-12-17] MEDS ORDERED: FURO20TA4 PO (13:18)
[2017-12-17] MEDS ORDERED: FERR325T18 PO (13:18)
[2017-12-17] MEDS ORDERED: ACHD5005 PO (13:18)
[2017-12-17] MEDS ORDERED: IBUP-1773 PO (13:18)
--- NOTE | 2017-12-17 13:22 | Discharge Inst-Women's Service ---
Discharge Inst-Women's Serv Depart Medication/Instructions New, Converted or Re-Newed RX: RX on Chart Final Diagnosis Type I diabetes gestational diabetes bradycardia Consults/Follow Up Additional Follow Up: Yes (1 weeks for BP check, incision check. Continue lasix until gone ) Orders/Referrals Increase basal rate slowly as needed to prepregnancy rate (may not need to go to whole dose) Activity Activity: Activity as Tolerated Driving Instructions: No Driving for 1 Week NO SMOKING: NO SMOKING Nothing Inside Vagina: No Douching, No Morral, No Tampons Diet Discharge Diet: ADA Diet Symptoms to Report to : Swelling Increased, Bleeding Excessive, Pain Increased, Fever Over 101 Degrees F, Vaginal Bleeding Increase, Cramps in Feet or Legs, Vaginal Discharge Foul For Any Problems or Questions: Contact Your Physician Skin/Wound Care Infection Signs and Symptoms: Increased Redness, Foul Odor of Wound, Increased Drainage, Skin Itchy or Has a Rash, Increased Swelling, Temperature Above 101 F Operative Area Clean and Dry: Keep Incision Clean/Dry Stitches/[place]/Dermabond: Dermabond Bathing Instructions: NICHOLE Danielson DO Dec 17, 2017 13:22
== END 2017-12-17 15:00 | disposition home or self-care (01) | DRG 765 ==
LOC: LDRP 18:00 → 3RD 12-15 10:30
PROVIDERS: ADMIT Obstetrics & Gynecology; ATTEND Obstetrics & Gynecology
PROC: 3E0P7GC Introduction of Other Therapeutic Substance into Female Reproductive, Via Natural or Artificial Opening (ICD-10-PCS; 2017-12-13)
PROC: 10D00Z1 Extraction of Products of Conception, Low, Open Approach (ICD-10-PCS; principal; 2017-12-14 01:13)
DX: O24.02 Pre-existing type 1 diabetes mellitus, in childbirth (principal); O76 Abnormality in fetal heart rate and rhythm complicating labor and delivery; O90.81 Anemia of the puerperium; D62 Acute posthemorrhagic anemia; E10.649 Type 1 diabetes mellitus with hypoglycemia without coma; Z3A.39 39 weeks gestation of pregnancy; Z37.0 Single live birth; Z79.4 Long term (current) use of insulin
CPT/HCPCS: 36415; 81000; 85025; 86850; 86870; 86900; 86901; 87088; 94664

== ENCOUNTER → 2018-08-09 | Outpatient (CLI) | payer BC ==
[~2018-08-09] MED LIST: ACHD5005 PO; FERR325T18 PO; FURO20TA4 PO; IBUP-1773 PO
[2018-08-09 11:36] LABS: FREE T4 (FREE THYROXINE) 0.91 NG/DL (0.70-1.48)
== END ==
LOC: LAB 10:15
PROVIDERS: ATTEND Internal Medicine Endocrinology, Diabetes & Metabolism
DX: E03.9 Hypothyroidism, unspecified (principal)
CPT/HCPCS: 36415; 84439; 84443

== ENCOUNTER → 2018-12-01 | Outpatient (CLI) | payer BC | LOC: LAB 14:36 | PROVIDERS: ATTEND Internal Medicine Endocrinology, Diabetes & Metabolism | DX: E10.9 Type 1 diabetes mellitus without complications (principal) | CPT/HCPCS: 36415; 84443 ==

== ENCOUNTER → 2020-02-04 | Outpatient (CLI) | payer BC ==
[2020-02-04 12:02] LABS: HEMOGLOBIN 13.1 G/DL (11.5-16.0); RED CELL DISTRIBUTION WIDTH 12.5 % (10.0-14.5)
[2020-02-04 12:21] LABS: ALANINE AMINOTRANSFERASE 11 U/L (0-55); ALBUMIN 4.5 GM/DL (3.2-4.5); ALKALINE PHOSPHATASE 68 U/L (40-136); BILIRUBIN,TOTAL 0.3 MG/DL (0.1-1.0); BUN/CREATININE RATIO 8; CALCIUM 9.3 MG/DL (8.5-10.1); CARBON DIOXIDE 22 MMOL/L (21-32); CHLORIDE 105 MMOL/L (98-107); CHOLESTEROL 154 MG/DL (< 200); CREATININE SERUM 0.84 MG/DL (0.60-1.30); GFR ESTIMATED > 60; GLUCOSE 243 MG/DL (70-105); HDL CHOLESTEROL 48 MG/DL (40-60); POTASSIUM 4.4 MMOL/L (3.6-5.0); SODIUM 135 MMOL/L (135-145); TOTAL PROTEIN 6.9 GM/DL (6.4-8.2); TRIGLYCERIDES 48 MG/DL (<150); VLDL CHOLESTEROL 10 MG/DL (5-40)
== END ==
LOC: LAB 11:41
PROVIDERS: ATTEND Internal Medicine Endocrinology, Diabetes & Metabolism
DX: E10.9 Type 1 diabetes mellitus without complications (principal)
CPT/HCPCS: 36415; 80053; 80061; 82043; 84443; 85027

== ENCOUNTER → 2021-02-04 | Outpatient (CLI) | payer BC ==
[2021-02-04 13:40] LABS: BASOPHILS # (AUTO) 0.1 10^3/uL (0.0-0.1); BASOPHILS % (AUTO) 1 % (0-10); EOSINOPHILS # (AUTO) 0.1 10^3/uL (0.0-0.3); EOSINOPHILS % (AUTO) 2 % (0-10); HEMATOCRIT 41 % (35-52); HEMOGLOBIN 13.8 g/dL (11.5-16.0); LYMPHOCYTES # (AUTO) 2.9 10^3/uL (1.0-4.0); LYMPHOCYTES % (AUTO) 49 % (12-44); MEAN CORPUSCULAR HEMOGLOBIN 31 pg (25-34); MEAN CORPUSCULAR HGB CONC 34 g/dL (32-36); MEAN CORPUSCULAR VOLUME 92 fL (80-99); MEAN PLATELET VOLUME 8.9 fL (9.0-12.2); MONOCYTES # (AUTO) 0.4 10^3/uL (0.0-1.0); MONOCYTES % (AUTO) 7 % (0-12); NEUTROPHILS # (AUTO) 2.5 10^3/uL (1.8-7.8); NEUTROPHILS % (AUTO) 41 % (42-75); PLATELET COUNT 376 10^3/uL (130-400)
[2021-02-04 14:04] LABS: ALANINE AMINOTRANSFERASE 22 U/L (0-55); ALBUMIN 4.7 GM/DL (3.2-4.5); ALKALINE PHOSPHATASE 64 U/L (40-136); BILIRUBIN,TOTAL 0.4 MG/DL (0.1-1.0); BUN/CREATININE RATIO 4; CALCIUM 9.5 MG/DL (8.5-10.1); CARBON DIOXIDE 25 MMOL/L (21-32); CHLORIDE 107 MMOL/L (98-107); CHOLESTEROL 157 MG/DL (< 200); CREATININE SERUM 0.75 MG/DL (0.60-1.30); GFR ESTIMATED > 60; GLUCOSE 63 MG/DL (70-105); HDL CHOLESTEROL 52 MG/DL (40-60); SODIUM 139 MMOL/L (135-145); TRIGLYCERIDES 46 MG/DL (<150); VLDL CHOLESTEROL 9 MG/DL (5-40)
== END ==
LOC: LAB 13:15
PROVIDERS: ATTEND Internal Medicine Endocrinology, Diabetes & Metabolism
DX: E10.9 Type 1 diabetes mellitus without complications (principal); E03.8 Other specified hypothyroidism
CPT/HCPCS: 36415; 80053; 80061; 82043; 84443; 85025